=== PATIENT | female | born 1965 | race Caucasian/White ===

== ENCOUNTER → 2023-07-23 08:37 | Outpatient (CLI) | payer OTHER, SELFPAY ==
--- NOTE | 2023-07-23 | DI.MRI.S_ITS ---
PROCEDURE: MR BRAIN (IAC) WWO CON INDICATIONS: Sensorineural hearing loss, bilateral TECHNIQUE: Noncontrast sagittal T1 spin echo, axial FLAIR, axial gradient echo, axial diffusion and ADC through the brain. Axial thin-slice 3D CISS, coronal TruFISP, axial T1 spin echo with fat saturation through the internal auditory canals. After the administration of contrast, thin slice axial and coronal T1 spin echo with fat saturation through the internal auditory canals, and axial and coronal and sagittal T1 spin echo with fat saturation through the brain. COMPARISON: None. FINDINGS: Image quality: Excellent. Cerebellopontine angles: No cerebellopontine angle masses. No abnormal signal, mass lesion or enhancement within the visualized cranial nerves. CSF spaces: Ventricles are normal in size and shape. No extra-axial fluid collections. Basal cisterns are patent. Brain: No intracranial bleeds or mass effects. Calderon-white matter interface is intact. No abnormal intracranial enhancement. Diffusion weighted images demonstrate no acute ischemic insults. Brainstem appears normal. Normal intravascular flow voids are present. Skull and face: Calvarial marrow signal is normal. Orbits appear normal. Sinuses: Sinuses demonstrate significant pansinus mucosal thickening without fluid levels. IMPRESSION: 1. No acute intracranial process. 2. No abnormal signal, mass or enhancement within the visualized cranial nerves. Dictated by: Kaley Ruiz M.D. on 07/23/2023 at 12:28 Approved by: Kaley Ruiz M.D. on 07/23/2023 at 12:31
== END ==
LOC: MRI 08:39
PROVIDERS: Referring Provider Otolaryngology; Visit Provider Otolaryngology
DX: H90.3 Sensorineural hearing loss, bilateral (principal)
CPT/HCPCS: 70553; A9579